=== PATIENT | female | born 1995 | race Caucasian/White ===

== ENCOUNTER 2018-06-19 16:47 | Emergency (ER) | payer MEDICAID, OTHER ==
[~2018-06-19] VITALS: Ht 162.6 cm; Wt 82.0 kg
[~2018-06-19 16:47] MED LIST: FERR142T6 PO; FERR1TAB25 PO; HYDR-519 PO; MULT1CAP34 PO; NONE REPORTED; OMEP20TA2 PO; VIC PO
[2018-06-19 17:00] VITALS: BP 105/70
== END 2018-06-19 19:16 | disposition home or self-care (01) ==
LOC: ER 16:47
DX: J32.9 Chronic sinusitis, unspecified (principal); J45.909 Unspecified asthma, uncomplicated; F17.200 Nicotine dependence, unspecified, uncomplicated; Z90.49 Acquired absence of other specified parts of digestive tract; Z79.899 Other long term (current) drug therapy
CPT/HCPCS: 81025; 99283

== ENCOUNTER 2021-06-15 07:42 | Emergency (ER) | payer BC, MEDICAID, OTHER ==
[~2021-06-15] VITALS: Ht 162.6 cm; Wt 86.0 kg
[2021-06-15] MEDS ORDERED: MORPHINE SULFATE 4 MG/ML CPJ (NOT FOR IM USE) IV STA (08:16)
[2021-06-15] MEDS ORDERED: ONDANSETRON HCL 4MG/2ML INJ IV STA (08:16)
[2021-06-15] MEDS ORDERED: SODIUM CHLORIDE 0.9% 1,000 ML IV ONE (08:30)
[2021-06-15] MEDS ORDERED: DEXAMETHASONE 10 MG/ML VIAL IV ONE (08:30)
[2021-06-15] MEDS ORDERED: KETOROLAC 15MG/ML VIAL IV ONE (08:30)
[2021-06-15] MEDS ORDERED: IBUP-2030 MT (10:37)
[2021-06-15] MEDS ORDERED: ONDA4TAB11 PO (10:37)
[2021-06-15 11:00] VITALS: BP 112/78
== END 2021-06-15 11:16 | disposition home or self-care (01) ==
LOC: ER 08:17
DX: R51.9 Headache, unspecified (principal); H53.142 Visual discomfort, left eye; Z90.49 Acquired absence of other specified parts of digestive tract
CPT/HCPCS: 81025; 96361; 96374; 96375; 99284; J1100; J1885; J2270; J2405; J7030; Z7610